=== PATIENT | male | born 1965 ===

== ENCOUNTER 2024-02-05 11:09 | Emergency (ER) | payer MEDICAID, SELFPAY ==
--- NOTE | ~2024-02-05 | XR_ITS ---
EXAMINATION: XR CHEST CLINICAL INFORMATION: Fever. COMPARISON: None available. TECHNIQUE: Frontal view of the chest was obtained. FINDINGS: No significant abnormality is noted involving the heart, lungs, mediastinum, bony thorax or soft tissues. XR/XR chest 1V IMPRESSION: Unremarkable chest examination. Electronically signed by: Gerber Allison MD 02/05/2024 01:49 PM EDT RP
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
[2024-02-05 11:18] VITALS: BP 172/84; PULSE 81; RESP 18; TEMP 36.6; O2SAT 98; BMI 26.5
--- NOTE | 2024-02-05 11:19 | ECG_ITS ---
Test Reason : DIZZINESS Blood Pressure : / mmHG Vent. Rate : 069 BPM Atrial Rate : 069 BPM P-R Int : 156 ms QRS Dur : 092 ms QT Int : 398 ms P-R-T Axes : 050 063 020 degrees QTc Int : 426 ms Normal sinus rhythm with sinus arrhythmia Normal ECG No previous ECGs available Referred By: Autumn Caban Electronically Signed By:KRYSTYNA HERMAN
[2024-02-05 11:37] LABS: MANUAL DIFF FLAG NO
[2024-02-05 11:38] LABS: Basophils Percent Auto 0.5 % (0-2); Eosinophils Percent Auto 0.2 % (0-4); Hematocrit 42.3 % (42.0-52.0); Imm Gran Abs Auto 0.02 X10*3/uL (0.00-0.03); Imm Gran Pct Auto 0.3 % (0.0-0.4); Lymphocytes Absolute Auto 1.5 X10*3/uL (1.2-4.9); Lymphocytes Percent Auto 23.6 % (20-40); Mean Corpuscular HGB Conc 35.5 g/dl (31.0-36.0); Mean Corpuscular Hemoglobin 32.8 pg (27.0-33.0); Mean Corpuscular Volume 92.4 fL (80.0-98.0); Mean Platelet Volume 10.7 fL (9.4-12.4); Monocytes Absolute Auto 0.4 X10*3/uL (0.1-1.2); Monocytes Percent Auto 5.9 % (2-11); Neutrophils Absolute Auto 4.4 x10*3/uL (2.0-8.3); Neutrophils Percent Auto 69.5 % (45-73); Platelet Count 246 X10*3/uL (160-400); Red Blood Count 4.58 X10*6/uL (4.60-5.80); Red Cell Distribution Width 11.6 % (11.0-16.0); White Blood Count 6.3 X10*3/uL (4.8-10.8)
[2024-02-05 11:55] VITALS: BP 146/69; PULSE 63; RESP 18; O2SAT 97
[2024-02-05 11:57] LABS: IDNOW Serial# 6674DD1D; Strep A Nucleic Acid Negative (Negative)
[2024-02-05 11:58] LABS: Alanine Aminotransferase 20 U/L (0-40); Albumin Level 4.5 g/dL (3.5-5.0); Alkaline Phosphatase 62 U/L (39-117); Anion Gap 18 (12-20); Aspartate Amino Transferase 22 U/L (5-37); Blood Urea Nitrogen 10 mg/dL (9-16); Calcium 9.8 mg/dL (8.4-10.2); Carbon Dioxide 25 mmol/L (22-29); Chloride 98 mmol/L (96-108); Creatinine Clr Calc Pharmacy 62.5; Estimated Glomerular Filt Rate > 60; Glucose Random 190 mg/dL (60-115); Potassium 3.1 mmol/L (3.3-5.1); Sodium 138 mmol/L (135-145); Total Protein 8.1 g/dL (6.5-8.0)
[2024-02-05 12:00] VITALS: BP 146/69; PULSE 102; RESP 18; TEMP 36.6; O2SAT 98
[2024-02-05 12:23] LABS: Influenza A PCR NEGATIVE (Negative); Influenza B PCR NEGATIVE (Negative); Resp Syncy Virus RNA Qual PCR NEGATIVE (Negative); SARS COV2 PCR INHOUSE NEGATIVE (Negative)
[2024-02-05] MEDS: Lactated Ringers 1,000 ML 999 ML IV ×2 (12:33→14:16)
[2024-02-05] MEDS: Ketorolac Tromethamine 15 MG/ML VIAL IVPUSH (12:33)
[2024-02-05] MEDS: ondansetron HCL 4 MG/2 ML VIAL IVPUSH (12:34)
--- NOTE | 2024-02-05 12:59 | MHC.EDTECH ---
This tech answered call bello, urine sample collected, call bello within reach.
[2024-02-05 13:04] LABS: Appearance Urine Clear; Color Urine Yellow; Glucose Urine UA 100 mg/dL (Negative); Leukocyte Esterase Urine Negative (Negative); Nitrite Urine Negative (Negative); PH 6.5 (5.0-9.0); UMIC TRIGGER UACC YES; Urine Blood Negative (Negative); Urine Ketones 80 mg/dL (Negative); Urine Protein 30 (1+) mg/dL (Neg-Trace)
[2024-02-05] MEDS: Potassium Chloride Packet 20 MEQ PACKET 40 MEQ PO (13:04)
[2024-02-05 13:06] LABS: Bacteria Urine None Seen (None Seen); Hyaline Casts Urine 0-2 /LPF (0-2); RBC Urine 0-2 /HPF (0-2); Squamous Epithelial Cell Urine 0-2 /HPF (0-2); WBC Urine 0-5 /HPF (0-5)
[2024-02-05 14:00] VITALS: BP 145/85; PULSE 52; RESP 12; TEMP 36.6; O2SAT 97
[2024-02-05] MEDS: Meclizine HCl 25 MG TABLET PO (14:16)
[2024-02-05 15:47] VITALS: BP 139/78; PULSE 63; RESP 12; TEMP 36.7; O2SAT 97
== END 2024-02-05 16:00 | disposition home or self-care (01) ==
PROVIDERS: Registered Nurse Emergency; Emergency Provider Emergency Medicine
DX: R11.2 Nausea with vomiting, unspecified (principal); I49.8 Other specified cardiac arrhythmias; I10 Essential (primary) hypertension; E86.0 Dehydration; R42 Dizziness and giddiness; E87.6 Hypokalemia; M54.2 Cervicalgia; Z03.818 Encounter for observation for suspected exposure to other biological agents ruled out; Z79.899 Other long term (current) drug therapy
CPT/HCPCS: 0241U; 71045; 80053; 81001; 81003; 83735; 85025; 87651; 93005; 96365; 96366; 96375; 99284; 99285; J1885; J2405; J7120

== ENCOUNTER 2024-06-26 09:02 | Outpatient (REF) | payer MEDICAID, SELFPAY ==
[2024-06-26 14:04] LABS: MANUAL DIFF FLAG NO
[2024-06-26 14:11] LABS: Basophils Absolute Auto 0.1 X10*3/uL (0.0-0.2); Basophils Percent Auto 0.7 % (0-2); Eosinophils Absolute Auto 0.1 X10*3/uL (0.0-0.4); Eosinophils Percent Auto 0.8 % (0-4); Hematocrit 45.8 % (42.0-52.0); Hemoglobin 15.4 g/dl (14.0-18.0); Imm Gran Abs Auto 0.05 X10*3/uL (0.00-0.03); Imm Gran Pct Auto 0.4 % (0.0-0.4); Lymphocytes Absolute Auto 1.9 X10*3/uL (1.2-4.9); Lymphocytes Percent Auto 13.9 % (20-40); Mean Corpuscular HGB Conc 33.6 g/dl (31.0-36.0); Mean Corpuscular Hemoglobin 32.4 pg (27.0-33.0); Mean Corpuscular Volume 96.4 fL (80.0-98.0); Mean Platelet Volume 12.4 fL (9.4-12.4); Monocytes Absolute Auto 0.6 X10*3/uL (0.1-1.2); Monocytes Percent Auto 4.6 % (2-11); Neutrophils Absolute Auto 10.7 x10*3/uL (2.0-8.3); Neutrophils Percent Auto 79.6 % (45-73); Platelet Count 307 X10*3/uL (160-400); Red Blood Count 4.75 X10*6/uL (4.60-5.80); Red Cell Distribution Width 11.9 % (11.0-16.0); White Blood Count 13.4 X10*3/uL (4.8-10.8)
[2024-06-26 14:38] LABS: Creatinine Urine 247.64 mg/dL; Microalbum/Creatinine Ratio Ur 4.8 ug/mg cr (<30)
[2024-06-26 14:55] LABS: Alanine Aminotransferase 21 U/L (0-40); Albumin Level 4.3 g/dL (3.5-5.0); Alkaline Phosphatase 81 U/L (39-117); Anion Gap 10 (12-20); Aspartate Amino Transferase 29 U/L (5-37); Bilirubin Total 0.6 mg/dL (0.0-1.0); Blood Urea Nitrogen 20 mg/dL (9-16); Calcium 9.7 mg/dL (8.4-10.2); Carbon Dioxide 30 mmol/L (22-29); Chloride 104 mmol/L (96-108); Cholesterol 149 mg/dL (<200); Estimated Glomerular Filt Rate > 60; Glucose Random 182 mg/dL (60-115); HDL Cholesterol 42 mg/dL (>40); LDL Cholesterol Calculated 91 mg/dL (<100); Potassium 4.7 mmol/L (3.3-5.1); Sodium 139 mmol/L (135-145); Triglycerides 83 mg/dL (<150)
[2024-06-26 15:48] LABS: TSH reflex Free T4 2.74 uIU/mL (0.32-4.0)
[2024-06-27 03:51] LABS: HIV AB/AG Nonreactive (Nonreactive); HIV Num 1 0.05 S/CO (0.00-0.99); ~HepC Num1 0.09 S/CO (0.00-0.79); ~Hepatitis C Antibody Nonreactive (Nonreactive)
== END 2024-06-26 09:03 | disposition home or self-care (01) ==
LOC: HO.CHCLDS 09:02
PROVIDERS: Visit Provider Internal Medicine
DX: E11.9 Type 2 diabetes mellitus without complications (principal)
CPT/HCPCS: 36415; 80053; 80061; 82043; 82570; 84443; 85025; 86803; 87389

== ENCOUNTER → 2024-11-06 09:53 | Outpatient (REF) | payer MEDICAID, SELFPAY ==
--- NOTE | 2024-11-06 09:56 | CA_ITS ---
Transthoracic Echocardiogram Patient (Last, First, Middle): Sixto Badillo, Gender: Male Date of : 1965 Age: 59 Procedure Date: 11/06/2024 Procedure Type: Transthoracic Echocardiogram Location: OP Height: 165.1 cm Weight: 74.84 kg BSA: 1.82 m2 Heart Rate: bpm BP: 150 / 85 mmHg Youth Coordinator: VH/RC Referring MD: Genaro Badillo MD Barrel Stave Inspector: Levi Mccall MD Symptoms: R01.1 HEART MURMUR, ASSESS VALVULAR DISEASEVALVULAR EVAL Study Quality: Good ECG Rhythm: Sinus Conclusions: - Essentially normal study with impaired relaxation filling pattern at mitral inflow Findings Left Ventricle Normal left ventricular size, thickness, and systolic function. The visually estimated ejection fraction is between 65-70%. Spectral Doppler is indicative of an impaired relaxation filling pattern. E/E prime ratio is between 8 and 15 consistent with indeterminate filling pressures. Right Ventricle Normal right ventricular cavity size and systolic function. Atria Both atria are normal in size. There is no evidence of interatrial shunt. Aortic Valve Normal aortic valve structure and function. There is no aortic valve stenosis. There is no aortic valve regurgitation. Mitral Valve Normal mitral valve structure and function. There is trace mitral valve regurgitation. There is no mitral valve stenosis. Pulmonic Valve The pulmonic valve is likely normal. Tricuspid Valve Normal tricuspid valve structure. There is trace tricuspid valve regurgitation. The right ventricular systolic pressure is normal. There is no evidence of pulmonary hypertension. Great Vessels All visible segments of the aorta are normal in size. The pulmonary artery was not well visualized. Venous The inferior vena cava is normal in size and collapses greater than 50% with inspiration. Pericardium/Pleural There is no evidence of pericardial effusion. Prior Study Comparison No prior study available for comparison. Measurements 2D Linear Measurements IVSd: 1.01 0.6-0.9/0.6-1.0 cm LVIDd: 3.95 3.9-5.3/4.2-5.9 cm LVIDd Index: 2.17 2.4-3.2/2.2-3.1 cm/m2 LVIDs: 2.21 2.0-3.6 cm LVPWd: 0.93 0.7-1.1 cm Ao Root: 3.00 2.1-3.5 cm LA Diam: 3.80 2.7-3.8/3.0-4.0 cm LAIDs Index: 2.09 1.5-2.3 cm/m2 LV Mass: 148.85 67-162/88-224 g LV Mass Index: 81.78 43-95/49-115 g/m2 LVOT Diam: 2.00 3.0+(-)1.3 cm Mitral Valve MV Pk E: 0.96 MV PK A: 0.93 MV Decel Time: 228.00 E/A: 1.00 E'Lateral: 11.00 E'Medial: 6.53 E/E' Med: 14.70 E/E' Lat: 8.70 PHT: 67.00 MVA PHT: 3.28 Decel [place]: 4.21 Aortic Valve AoV Pk Sean: 1.31 AoV Mn Sean: 0.95 AoV VTI: 0.24 AoV Pk Grad: 7.00 Aov Mn Grad: 4.00 TAWANDA Cont.VTI: 4.05 LVOT LVOT Pk Sean: 1.73 LVOT Mn Sean: 1.07 LVOT VTI: 0.31 LVOT Pk Grad: 12.00 LVOT Mn Grad: 5.00 LVOT Diam: 2.00 LVOT Area: 3.14 Diastolic Function MV Pk E: 0.96 MV Pk A: 0.93 E/A: 1.00 E'Medial: 6.53 E/E' Med: 14.70 E' Laterial: 11.00 E/E' Lat: 8.70 Right Ventricle TAPSE (mm): 33.00 TVS' Sean: 17.00 Tricuspid Valve TR Pk Sean: 0.98 TR Pk Grad: 4.00 RA Press: 3.00 RVSP: 7.00 Great Vessels Aorta Ao Root-2D: 3.00 2.0-3.7 cm Ao Asc: 3.70 2.1-3.4 cm Pulmonary Valve PV Pk Sean: 1.36 Peak PV Grad: 7.00 Updated in Other Vendor System with Status of Final Levi Mccall MD electronically signed on 11/07/2024 4:27:48 PM with status of Final
--- OUTSIDE RECORDS SUMMARY | 2024-11-06 10:31 | XMS_ITS | Encounter Summary ---
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 Name Role Phone Genaro Garcia MD Primary Care Prov ider Reason for Visit * Reason Comments Med Refill Encounter Details Date Type Department Care Team (Late st Contact Info) Description 01/05/2024 Refill [facility] [address] [place] [address] Kacy Rosenberg FNP [address] [place] [address] Social History Tobacco Use Types Packs/Day Years Used Date Smoking Tobacco: Never Assessed Sex and Gender Information Value Date Recorded Sex Assigned at Male 04/12/2022 10:40 AM EDT Legal Sex Male 10:40 AM EDT Gender Identity Male 04/12/2022 10:40 AM EDT Sexual Orientation Choose not to disclose 2021 10:40 AM EDT documented as of this encounter Plan of Treatment Upcoming Encounters Date Type Department Care Team (Late st Contact Info) Description 11/07/2024 3:00 PM EDT Telemedicine [facility] PEDS [address] [place] [address] Genaro Garcia MD [address] [place] [address] documented as of this encounter Visit Diagnoses Not on filedocumented in this encounter Care Teams She[employer] Wheat Farmer Relationship Specialty Start Date End Date Genaro Garcia MD [address] [place] [address] PCP - General Internal Medicine 04/13/24 documented as of this encounter
== END ==
LOC: HO.CARD 09:53
PROVIDERS: PCP Internal Medicine; Visit Provider Internal Medicine
DX: R01.1 Cardiac murmur, unspecified (principal)
CPT/HCPCS: 93306

== ENCOUNTER → 2024-11-06 09:56 | Outpatient (BNV) | payer MEDICAID, SELFPAY | PROVIDERS: PCP Internal Medicine; Visit Provider Internal Medicine Cardiovascular Disease | DX: I51.89 Other ill-defined heart diseases (principal); R01.1 Cardiac murmur, unspecified | CPT/HCPCS: 93306 ==